=== PATIENT | female | born 1990 | race Hispanic/Latino ===

== ENCOUNTER 2020-08-03 05:26 | Emergency (ER) | payer OTHER ==
[~2020-08-03] VITALS: Ht 147.3 cm; Wt 69.9 kg
[2020-08-03] MEDS ORDERED: ACET-841 PO (05:34)
[2020-08-03] MEDS ORDERED: FAMOTIDINE 20 MG TAB PO ONE (06:15)
[2020-08-03 06:35] LABS: BASO % 0.3 % (0.0-1.0); EOS # 0.3 10^3/uL (0.0-0.5); EOS % 2.7 % (0.0-3.0); HEMATOCRIT 43.1 % (36.0-47.0); HEMOGLOBIN 14.8 g/dl (12.0-15.5); LYMPH # 2.6 10^3/uL (1.5-5.0); LYMPH % 28.4 % (24.0-44.0); MEAN CORPUSCULAR HGB CONC 34.3 g/dl (32.0-36.5); MEAN CORPUSCULAR VOLUME 90.4 fl (80.0-96.0); MONO # 0.5 10^3/uL (0.0-0.8); MONO % 5.7 % (0.0-5.0); NEUTROPHILS # 5.7 10^3/uL (1.5-8.5); NEUTROPHILS % 62.7 % (36.0-66.0); PLATELET COUNT, AUTOMATED 426 10^3/uL (150-450); RED BLOOD COUNT 4.77 10^6/uL (4.00-5.40); WHITE BLOOD COUNT 9.1 10^3/uL (4.0-10.0)
[2020-08-03 07:01] LABS: HCG, SERUM QUALITATIVE NEGATIVE (NEGATIVE)
[2020-08-03 07:10] LABS: BLOOD UREA NITROGEN 13 MG/DL (7-18); CALCIUM LEVEL 9.5 MG/DL (8.5-10.1); CARBON DIOXIDE LEVEL 25 MEQ/L (21-32); CHLORIDE LEVEL 103 MEQ/L (98-107); CK-MB VALUE MASS < 1.0 NG/ML (<3.6); CPK CREATINE PHOSPHOKINASE 108 U/L (26-192); CREATININE FOR GFR 0.74 MG/DL (0.55-1.30); GLOMERULAR FILTRATION RATE > 60.0 (>60); GLUCOSE, FASTING 84 MG/DL (70-100); MB/CK RELATIVE INDEX 0.93 (< OR =4); POTASSIUM SERUM 4.4 MEQ/L (3.5-5.1); SODIUM LEVEL 134 MEQ/L (136-145); TROPONIN I < 0.02 NG/ML (< 0.10)
--- NOTE | 2020-08-03 07:42 | REP ---
INDICATION: central chest pain. COMPARISON: None. TECHNIQUE: PA and lateral upright chest FINDINGS: The lung rodriguez are clear. The cardiac size is normal. The ivonne, mediastinum, and skeletal structures are unremarkable. IMPRESSION: Negative PA and lateral chest. <Electronically signed by Junito Kong > 08/03/20 0738
[2020-08-03] MEDS ORDERED: GI COCKTAIL 50ML BTL(HYOSCYAMINE/MAALOX/LIDOCAINE VISCOUS)(1:3:1) PO ONE (07:45)
[2020-08-03] MEDS ORDERED: PROT1TAB2 PO (08:13)
[2020-08-03 08:20] VITALS: BP 134/95
--- NOTE | 2020-08-03 09:22 | ECGEPIP ---
[facility] - ED Test Date: 2020-08-03 Pat Name: HOLLY CASTILLO Department: Room: - Gender: Female [place] [employer] Installer: arlene : 1990 Requested By: SAKSHI Acevedo Order Number: [id number] Reading MD: Jeison Rivers Measurements Intervals Marcell Rate: 95 P: 47 ND: 127 QRS: 20 QRSD: 76 T: 9 QT: 352 QTc: 443 Interpretive Statements SINUS RHYTHM NO PRIORS FOR COMPARISON Electronically Signed on 08-03-2020 9:21:48 EST by Jeison Rivers
== END 2020-08-03 08:29 | disposition home or self-care (01) ==
LOC: M ED 05:26
DX: K21.9 Gastro-esophageal reflux disease without esophagitis (principal); Z79.899 Other long term (current) drug therapy; F17.210 Nicotine dependence, cigarettes, uncomplicated